=== PATIENT | male | born 1960 | race African-American/Black ===

== ENCOUNTER 2021-06-25 21:50 | Emergency (ER) | payer OTHER ==
[~2021-06-25] VITALS: Ht 185.4 cm; Wt 83.9 kg
[~2021-06-25 21:50] MED LIST: ALBU2.5V38
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
--- NOTE | 2021-06-25 22:34 | NUR ---
URINE COLLECTED AND SENT TO LAB
[2021-06-25] MEDS ORDERED: ONDANSETRON HCL/PF 4 MG/2 ML VIAL ONE (22:41)
[2021-06-25] MEDS ORDERED: HYDROMORPHONE 1 MG/1 ML DISP.SYRIN ONE (22:41)
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
[2021-06-25 23:00] LABS: BASOPHILS % (AUTO) 0.4 % (0.0-2.0); EOSINOPHILS % (AUTO) 7.2 % (0.0-6.0); HEMATOCRIT 40 % (39-51); HEMOGLOBIN 13.7 g/dL (13.5-17.5); LYMPHOCYTES # (AUTO) 2.9 K/uL (0.8-4.8); LYMPHOCYTES % (AUTO) 33.1 % (20.0-44.0); MEAN CORPUSCULAR HGB CONC 34 g/dl (31.0-36.0); MEAN CORPUSCULAR VOLUME 89 fL (80-96); MONOCYTES # (AUTO) 0.6 K/uL (0.1-1.30); MONOCYTES % (AUTO) 6.5 % (2.0-12.0); NEUTROPHILS # (AUTO) 4.6 K/uL (1.8-8.9); NEUTROPHILS % (AUTO) 52.8 % (43.0-81.0); PLATELET COUNT (AUTO) 295 K/uL (150-450); RED BLOOD CELL COUNT(AUTO) 4.52 MIL/uL (4.5-6.0); WHITE BLOOD COUNT (AUTO) 8.7 K/uL (4.3-11.0)
[2021-06-25] MEDS ORDERED: CT SWABBABLE VALVE TRANS SET 1 EA INFUS.SET MC ONE (23:00)
[2021-06-25] MEDS ORDERED: IOHEXOL-300 100 ML VIAL IV ONE (23:00)
[2021-06-25] MEDS: HYDROMORPHONE INJ 2 MG/ML DISP.SYRIN IV ONE (23:00)
[2021-06-25] MEDS: ONDANSETRON HCL/PF 4 MG/2 ML VIAL IVP ONE (23:00)
[2021-06-25] MEDS ORDERED: IV NS 0.9% 250 ML IV ONE (23:01)
[2021-06-25 23:02] LABS: BILIRUBIN,URINE NEGATIVE (NEGATIVE); COLOR,URINE YELLOW (YELLOW); LEUKOCYTE ESTERASE ,URINE NEGATIVE (NEGATIVE); NITRITE, URINE NEGATIVE (NEGATIVE); PROTEIN,URINE NEGATIVE (NEGATIVE); UGLUCOSE NEGATIVE (NEGATIVE); UROBILINOGEN,URINE 0.2 EU/dL (0.2)
[2021-06-25 23:55] LABS: CARBON DIOXIDE 28 mmol/L (21-32); CHLORIDE 104 mmol/L (98-107); CREATININE 1.2 mg/dL (0.6-1.3); GLUCOSE 105 mg/dL (74-106); POTASSIUM 4.4 mmol/L (3.5-5.1); SODIUM SERUM 137 mmol/L (136-145); UREA NITROGEN, BLOOD 20 mg/dL (7-18)
[2021-06-26 00:05] LABS: ALANINE AMINOTRANSFERASE 33 U/L (12-78); ALBUMIN 3.7 g/dL (3.4-5.0); ALKALINE PHOSPHATASE 117 U/L (46-116); ASPARTATE AMINOTRANSFERASE 29 U/L (15-37); BILIRUBIN,DIRECT 0.1 mg/dL (0.0-0.2); BILIRUBIN,TOTAL 0.2 mg/dL (0.2-1.0); LIPASE 174 U/L (73-393)
--- NOTE | 2021-06-26 00:08 | NUR ---
CALLED RADIOLOGY. PT READY FOR CT
--- NOTE | 2021-06-26 00:21 | NUR ---
PT TAKEN TO CT VIA W/C
[2021-06-26] MEDS ORDERED: ONDA4TAB5 PO (01:19)
[2021-06-26] MEDS ORDERED: HYDR-4209 PO (01:19)
[2021-06-26] MEDS ORDERED: AMOX-430 PO (01:19)
[2021-06-26 01:41] VITALS: BP 145/99
== END 2021-06-26 01:42 | disposition home or self-care (01) ==
LOC: ER 21:53
DX: K57.30 Diverticulosis of large intestine without perforation or abscess without bleeding (principal); J45.909 Unspecified asthma, uncomplicated; Z87.442 Personal history of urinary calculi; Z60.2 Problems related to living alone; Z79.51 Long term (current) use of inhaled steroids
CPT/HCPCS: 36415; 74177; 80048; 80076; 81003; 83690; 84484; 85025; 85730; 99285; J7050; Q9967; J1170; J2405

== ENCOUNTER 2022-02-19 02:29 | Emergency (ER) | payer OTHER ==
[~2022-02-19] VITALS: Ht 177.8 cm; Wt 77.1 kg
[~2022-02-19 02:29] MED LIST changes: +AMOX-430 PO; +HYDR-4209 PO; +ONDA4TAB5 PO
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
[2022-02-19] MEDS ORDERED: KETOROLAC TROMETHAMINE INJ 60 MG/2 ML VIAL IM ONE ×2 (02:59→03:00)
[2022-02-19] MEDS ORDERED: IBUPROFEN 600 MG TABLET ONE (03:41)
[2022-02-19] MEDS ORDERED: IBUPROFEN 600 MG TABLET PO ONE (04:00)
[2022-02-19] MEDS ORDERED: KETO10TA2 PO (05:28)
[2022-02-19 05:51] VITALS: BP 144/89
--- NOTE | 2022-02-19 05:51 | NUR ---
Patient discharged to home in stable condition. Written and verbal after care instructions given. Patient verbalizes understanding of instruction.
== END 2022-02-19 05:51 | disposition home or self-care (01) ==
LOC: ER 02:35
DX: M54.50 Low back pain, unspecified (principal); M25.522 Pain in left elbow; J45.909 Unspecified asthma, uncomplicated; Z60.2 Problems related to living alone; Z79.899 Other long term (current) drug therapy; V49.69XA Unspecified car occupant injured in collision with other motor vehicles in traffic accident, initial encounter; Y93.89 Activity, other specified; Y92.413 State road as the place of occurrence of the external cause; Y99.8 Other external cause status
CPT/HCPCS: 72110-TC; 73080-TC; J1885